=== PATIENT | male | born 1980 | race Hispanic/Latino ===

== ENCOUNTER 2017-05-08 09:59 | Emergency (ER) | payer OTHER ==
[2017-05-08 10:02] VITALS: BP 139/85; PULSE 78; TEMP 98; O2SAT 98
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
[2017-05-08 13:30] VITALS: RESP 16
== END 2017-05-08 13:20 | disposition home or self-care (01) ==
LOC: H.ER 09:59
DX: S09.90XA Unspecified injury of head, initial encounter (principal); S01.81XA Laceration without foreign body of other part of head, initial encounter; Y08.09XA Assault by strike by other specified type of sport equipment, initial encounter; Y93.9 Activity, unspecified